=== PATIENT | male | born 1960 | race Caucasian/White ===

== ENCOUNTER → 2020-05-29 | Day surgery (SDC) | payer OTHER ==
[2016-06-19 11:55] VITALS: BP 138/74
[~2020-05-29] MED LIST: AMLODIPINE BESYL5 MG PO; BLOOD PRESSURE MED; DIABETES MED; GLIPIZIDE10 M2 PO; GLUCOPHAGE PO; LIPITOR 40MG TA40 MG PO; LOTENSIN40 M1 PO; NORCO 325 MG-51 TAB PO
== END ==
LOC: MSO 10:32
DX: E11.36 Type 2 diabetes mellitus with diabetic cataract (principal); H26.9 Unspecified cataract; Z79.84 Long term (current) use of oral hypoglycemic drugs
CPT/HCPCS: J0171; J2370; V2632